=== PATIENT | female | born 1965 | race American Indian/Alaskan Native ===

== ENCOUNTER 2017-09-02 10:47 | Outpatient (CLI) | payer BC ==
--- NOTE | 2017-09-02 12:22 | Mammography Report ---
BILATERAL DIGITAL SCREENING MAMMOGRAM with CAD : 09/02/17 10:47:00 CLINICAL: Routine screening.Previous right benign biopsy. COMPARISON:09/04/15 FINDINGS: The breasts are heterogeneously dense, which may obscure small masses.Right periareolar biopsy clip. No mass, architectural distortion or suspicious calcifications. IMPRESSION: No mammographic evidence of malignancy. BI-RADS CATEGORY: 2 -- Benign RECOMMENDATION: Routine mammographic screening in one year. COMMENT: Patient follow-up letters are generated by our [employer] application.
== END 2017-09-02 10:48 | disposition home or self-care (01) ==
LOC: MAMMO 10:47
PROVIDERS: ATTEND Obstetrics & Gynecology
DX: Z12.31 Encounter for screening mammogram for malignant neoplasm of breast (principal)
CPT/HCPCS: 77067; G0202

== ENCOUNTER 2019-09-16 14:19 | Outpatient (CLI) | payer BC ==
--- NOTE | 2019-09-21 15:00 | Mammography Report ---
DIGITAL SCREENING MAMMOGRAM WITH TOMOSYNTHESIS WITH CAD, 09/16/2019 INDICATION: Routine Screening Mammography. SCREENING TECHNIQUE: Digital bilateral 2D and 3D mammography with tomosynthesis was obtained in the craniocau ibrahima and mediolateral oblique projections. Computer-Aided Detection (CAD) analysis was used for inter pretation of this study. COMPARISON: 09/07/2018 FINDINGS: Breast Density: The breasts are heterogeneously dense, which may obscure small masses. There is no evidence of new mass, suspicious calcifications or architectural distortion in either kwame ast. A stable right lower outer circumscribed mass with a biopsy clip (image 40 of the MLO rody serie s and image 26 of the CC rody series). IMPRESSION: No mammographic evidence of malignancy. Follow up recommendation: Routine yearly BI-RADS Category 2: Benign. A "normal" or negative report should not discourage follow up or biopsy of a clinically significant f inding. A written summary of these findings will be mailed to the patient. The patient will be entered into a mammography reporting system which will generate a reminder letter for the patient's next appointmen t at the appropriate interval. The [employer] recommends yearly mammograms starting at age 40 and continuing as l lois as a woman is in good health. Breast MRI is recommended for women with an approximate 20-25% or greater lifetime risk of breast cancer, including women with a strong family history of breast or ova marry cancer or who have been treated for Hodgkin's disease. Signer Name: Charles Cavazos MD Signed: 09/21/2019 2:56 PM Workstation Name: [id number]
== END 2019-09-16 14:20 | disposition home or self-care (01) ==
LOC: SPVWC 14:19
PROVIDERS: ATTEND Obstetrics & Gynecology
DX: Z12.31 Encounter for screening mammogram for malignant neoplasm of breast (principal)
CPT/HCPCS: 77063; 77067

== ENCOUNTER 2020-09-05 08:54 | Outpatient (CLI) | payer BC ==
--- NOTE | 2020-09-05 10:44 | Mammography Report ---
DIGITAL SCREENING MAMMOGRAM WITH CAD, 09/05/2020 INDICATION: Routine screening mammography. TECHNIQUE: Digital bilateral 2D mammography was obtained in the craniocaudal and mediolateral obliq ue projections. This examination was interpreted with the benefit of Computer-Aided Detection analysi s. COMPARISON: 09/16/2019, 09/07/2018, 09/02/2017, 09/04/2015 FINDINGS: Breast Density: The breasts are heterogeneously dense, which may obscure small masses. There is no evidence of dominant mass, suspicious calcifications or architectural distortion in eithe r breast. Biopsy clip is again noted in the right breast. IMPRESSION: Follow up recommendation: Routine yearly BI-RADS Category 2: Benign. A "normal" or negative report should not discourage follow up or biopsy of a clinically significant f inding. A written summary of these findings will be mailed to the patient. The patient will be entered into a mammography reporting system which will generate a reminder letter for the patient's next appointmen t at the appropriate interval. The [employer] recommends yearly mammograms starting at age 40 and continuing as l lois as a woman is in good health. Breast MRI is recommended for women with an approximate 20-25% or greater lifetime risk of breast cancer, including women with a strong family history of breast or ova marry cancer or who have been treated for Hodgkin's disease. Signer Name: Twyla Myers MD Signed: 09/05/2020 10:40 AM Workstation Name: [id number]
== END 2020-09-05 08:55 | disposition home or self-care (01) ==
LOC: MAMMO 08:54
PROVIDERS: ATTEND Obstetrics & Gynecology
DX: Z12.31 Encounter for screening mammogram for malignant neoplasm of breast (principal)
CPT/HCPCS: 77067